=== PATIENT | female | born 1965 | race Caucasian/White ===

== ENCOUNTER 2017-04-03 10:35 | Emergency (ER) | payer BC ==
[2017-04-03] MEDS: KETOROLAC 60 MG/2 ML VIAL (J1885) IM (12:11)
== END 2017-04-03 12:59 | disposition home or self-care (01) ==
LOC: M ED 10:35
DX: R51 Headache (principal); R11.0 Nausea
CPT/HCPCS: J1885

== ENCOUNTER → 2017-05-07 | Outpatient (CLI) | payer BC | LOC: M WUC 16:08 | DX: M79.674 Pain in right toe(s) (principal) | CPT/HCPCS: 73660 ==

== ENCOUNTER → 2017-11-02 | Outpatient (CLI) | payer BC | LOC: M WHC 14:53 | DX: Z12.31 Encounter for screening mammogram for malignant neoplasm of breast (principal); N60.31 Fibrosclerosis of right breast; N60.32 Fibrosclerosis of left breast | CPT/HCPCS: 77067 ==

== ENCOUNTER → 2017-11-29 | Outpatient (CLI) | payer BC ==
[2017-11-29 10:29] LABS: HEMATOCRIT 39.8 % (36.0-47.0); HEMOGLOBIN 13.2 g/dl (12.0-15.5); MEAN CORPUSCULAR HGB CONC 33.2 g/dl (32.0-36.5); MEAN CORPUSCULAR VOLUME 90.5 fl (80.0-96.0); PLATELET COUNT, AUTOMATED 235 10^3/uL (150-450); RED CELL DISTRIBUTION WIDTH 13.6 % (11.5-14.5); WHITE BLOOD COUNT 7.3 10^3/uL (4.0-10.0)
[2017-11-29 14:30] LABS: ALBUMIN 4.1 GM/DL (3.2-5.2); ALBUMIN/GLOBULIN RATIO 1.11 (1.00-1.93); ALKALINE PHOSPHATASE 82 U/L (45-117); ALT/SGPT 28 U/L (12-78); ANION GAP 9 MEQ/L (8-16); AST/SGOT 20 U/L (7-37); BILIRUBIN,TOTAL 0.5 MG/DL (0.2-1.0); BLOOD UREA NITROGEN 19 MG/DL (7-18); CALCIUM LEVEL 9.4 MG/DL (8.5-10.1); CARBON DIOXIDE LEVEL 28 MEQ/L (21-32); CHLORIDE LEVEL 105 MEQ/L (98-107); CHOLESTEROL LEVEL 219 MG/DL (<200); CHOLESTEROL RISK RATIO 2.638 (<5); CREATININE FOR GFR 0.77 MG/DL (0.55-1.30); GLOMERULAR FILTRATION RATE > 60.0 (>51); GLUCOSE, FASTING 79 MG/DL (70-100); HDL CHOLESTEROL 83 MG/DL (>40); LDL CHOLESTEROL 120 MG/DL (<100); NON-HDL-C 136 MG/DL; POTASSIUM SERUM 4.1 MEQ/L (3.5-5.1); SODIUM LEVEL 142 MEQ/L (136-145); TOTAL 25(OH) VITAMIN D 52.2 NG/ML (30.0-100.0); TOTAL PROTEIN 7.8 GM/DL (6.4-8.2); TRIGLYCERIDES LEVEL 80 MG/DL (<150)
[2017-11-29 15:32] LABS: ESTIMATED AVERAGE GLUCOSE 105 MG/DL (60-110); HEMOGLOBIN A1c 5.3 %
== END ==
LOC: M LAB 10:03
DX: R53.83 Other fatigue (principal); E03.9 Hypothyroidism, unspecified
CPT/HCPCS: 71046

== ENCOUNTER → 2018-12-19 | Outpatient (CLI) | payer OTHER ==
[~2018-12-19] MED LIST: CEFD1CAP8 PO; CYCL10TA PO; HYDR-3716 PO; OXYB5TAB10 PO; SOMA350T PO; XANA1TAB2 PO; ZOFR4TAB14 PO
--- NOTE | 2018-12-19 16:23 | REPMRS ---
Patient History The patient states she has not had a clinical breast exam in over a year. Patient is postmenopausal. Family history of colorectal cancer at age 73 in mother. 3D TOMOSYNTHESIS WAS PERFORMED. The [facility] lifetime risk for breast cancer is 7.7%. Digital Woman Screen Mammo: December 19, 2018 - Exam #: [id number] Bilateral CC and MLO view(s) were taken. Technologist: Flaquita Scott Technologist Prior study comparison: November 02, 2017, bilateral digital woman screen mammo performed at [facility]. June 23, 2015, digital woman screen mammo performed at [facility]. FINDINGS: The breast tissue is heterogeneously dense. This may lower the sensitivity of mammography. There has been no change in the appearance of the mammogram from the prior studies. There is a moderate amount of residual fibroglandular tissue which is fairly symmetric. There is no interval development of dominant mass, areas of architectural distortion, or clustered microcalcification typical of malignancy. Assessment: BI-RADS/ACR category 1 mammogram. Negative Mammogram. Recommendation Routine screening mammogram in 1 year (for women over age 40). This mammogram was interpreted with the aid of an FDA-approved computer-aided dectection system. Electronically Signed By: Alexandr Jose MD 12/19/18 7101
== END ==
LOC: M WHC 15:00
PROVIDERS: ATTEND Family Medicine
DX: Z12.31 Encounter for screening mammogram for malignant neoplasm of breast (principal); Z78.0 Asymptomatic menopausal state; Z80.0 Family history of malignant neoplasm of digestive organs

== ENCOUNTER → 2019-02-18 | Outpatient (REF) | payer OTHER | LOC: M PLALAB 15:27 | PROVIDERS: ATTEND Nurse Practitioner Women's Health | DX: Z12.4 Encounter for screening for malignant neoplasm of cervix (principal) ==

== ENCOUNTER → 2019-04-22 | Outpatient (CLI) | payer OTHER ==
[2019-04-22 13:33] LABS: HEMATOCRIT 43.4 % (36.0-47.0); HEMOGLOBIN 14.5 g/dl (12.0-15.5); MEAN CORPUSCULAR HEMOGLOBIN 31.9 pg (27.0-33.0); MEAN CORPUSCULAR HGB CONC 33.4 g/dl (32.0-36.5); MEAN CORPUSCULAR VOLUME 95.6 fl (80.0-96.0); PLATELET COUNT, AUTOMATED 241 10^3/uL (150-450); RED BLOOD COUNT 4.54 10^6/uL (4.00-5.40); WHITE BLOOD COUNT 6.2 10^3/uL (4.0-10.0)
[2019-04-22 13:35] LABS: BLOOD UREA NITROGEN 15 MG/DL (7-18); CALCIUM LEVEL 9.7 MG/DL (8.5-10.1); CARBON DIOXIDE LEVEL 31 MEQ/L (21-32); CHLORIDE LEVEL 102 MEQ/L (98-107); CREATININE FOR GFR 0.88 MG/DL (0.55-1.30); GLOMERULAR FILTRATION RATE > 60.0 (>51); GLUCOSE, FASTING 94 MG/DL (70-100); POTASSIUM SERUM 4.1 MEQ/L (3.5-5.1); SODIUM LEVEL 139 MEQ/L (136-145)
== END ==
LOC: M PLALAB 08:59
PROVIDERS: ATTEND Urology
DX: R32 Unspecified urinary incontinence (principal)

== ENCOUNTER 2019-04-29 07:53 | Day surgery (SDC) | payer OTHER ==
[~2019-04-29] VITALS: Ht 162.6 cm; Wt 61.6 kg
[~2019-04-29 07:53] MED LIST changes: +LR 1,000 ML IV ONE; +MELO7.5T35 PO; +ceFAZolin SOD 2 GM in IV 1 EA IV ONE
[2019-04-29] MEDS ORDERED: LIDOCAINE 2% INJ 100 MG/5 ML SDV (FOR ANES.) As Ordered ONE (08:09)
[2019-04-29] MEDS ORDERED: fentaNYL 100 MCG/2 ML INJECTION (J3010) As Ordered ONE ×2 (08:09→11:54)
[2019-04-29] MEDS ORDERED: propofoL 200 MG/20 ML VIAL As Ordered ONE (08:09)
[2019-04-29] MEDS ORDERED: MIDAZOLAM INJ 2 MG/2 ML VIAL (J2250) As Ordered ONE (08:09)
[2019-04-29] MEDS ORDERED: ESTROGENS VAGINAL CREAM 30GM As Ordered ONE (10:31)
[2019-04-29] MEDS ORDERED: BUPIVACAINE/EPIN 0.25% 30 ML VIAL As Ordered ONE (10:31)
[2019-04-29] MEDS ORDERED: LIDOCAINE 1% SDV INJ 30 ML VIAL As Ordered ONE (10:31)
[2019-04-29] MEDS ORDERED: LIDOCAINE 2% 5ML JELLY UROJET As Ordered ONE (10:31)
[2019-04-29] MEDS ORDERED: BACITRACIN PWD 50,000 UNITS VIAL As Ordered ONE (10:32)
[2019-04-29] MEDS ORDERED: FLUORESCEIN 10% (100MG/ML) 5 ML VIAL As Ordered ONE (10:32)
[2019-04-29] MEDS ORDERED: dexameTHASONE 4 MG/ML 1ML VIAL (J1100) As Ordered ONE (10:54)
[2019-04-29] MEDS ORDERED: KETOROLAC 60 MG/2 ML VIAL (J1885) As Ordered ONE (11:10)
[2019-04-29] MEDS ORDERED: ONDANSETRON 4MG/2ML VIAL (J2405) As Ordered ONE (11:10)
[2019-04-29] MEDS ORDERED: ACETAMINOPHEN 1000MG 100ML IV BTL (OFIRMEV) (J0131 PER 10MG) As Ordered ONE (11:10)
[2019-04-29] MEDS ORDERED: METOCLOPRAMIDE INJ 10MG/2ML VIAL (J2765) As Ordered ONE (11:10)
[2019-04-29] MEDS ORDERED: BACITRACIN OINT 30GM As Ordered ONE (11:27)
[2019-04-29] MEDS: fentaNYL 100 MCG/2 ML INJECTION (J3010) IV PRN ×3 (11:55→12:14)
[2019-04-29] MEDS ORDERED: LR 1,000 ML IV SCH (12:00)
[2019-04-29] MEDS ORDERED: ONDANSETRON 4MG/2ML VIAL (J2405) IV PRN (12:00)
[2019-04-29] MEDS ORDERED: ALPRAZolam 0.5 MG TAB PO PRN (13:15)
--- NOTE | 2019-04-29 13:15 | ECGEPIP ---
[facility] Test Date: 2019-04-29 Pat Name: NICK VERNON Department: Room: - Gender: Female Adjuster Electrical Contacts: JULI : 1965 Requested By: Ruddy Smith Order Number: [id number] Reading MD: Roberto Wagner Measurements Intervals [place] Rate: 65 P: 65 AL: 162 QRS: 45 QRSD: 85 T: 32 QT: 406 QTc: 423 Interpretive Statements SINUS RHYTHM Within normal limits. Electronically Signed on 04-29-2019 13:15:32 EST by Roberto Wagner
[2019-04-29] MEDS ORDERED: PERC5TAB12 PO (13:18)
[2019-04-29] MEDS ORDERED: PERCOCET 5MG/325MG TAB As Ordered ONE ×2 (14:10→14:50)
[2019-04-29] MEDS: PERCOCET 5MG/325MG TAB PO PRN ×3 (14:20→19:10)
[2019-04-29] MEDS ORDERED: PERCOCET 5MG/325MG TAB PO PRN (15:15)
[2019-04-29 17:00] VITALS: BP_SYST 102; BP_SYST 142; BP_DIAS 57; BP_DIAS 85
[2019-04-29 17:30] VITALS: BP 134/75
[2019-04-29] MEDS ORDERED: ONDANSETRON 4 MG ORAL DISINTEGRATING TAB (Q0162 PER 1MG) PO PRN (18:15)
[2019-04-29 20:00] VITALS: BP 128/72
--- NOTE | 2019-04-29 21:44 | RO ---
DATE OF PROCEDURE: 04/29/2019 PREOPERATIVE DIAGNOSIS: Mixed urinary incontinence. POSTOPERATIVE DIAGNOSIS: Mixed urinary incontinence. PROCEDURE: Placement of a midurethral sling with the use of a TVT-O by [employer]. SURGEON: Dr. Karin Treadwell OFFICE PROFESSIONAL: ANESTHESIA: General. MEDICATIONS: Ancef 2 grams preoperatively. DRAINS: #16-Somali Linares catheter. ESTIMATED BLOOD LOSS: 50 mL. INDICATIONS FOR PROCEDURE: The patient is a 53-year-old female with severe mixed urinary incontinence. She had tried oxybutynin and went up to 10 mg ER and had an adequate trial on this but noticed no change in her symptoms. She definitely leaks significant urine with stress maneuvers. Urodynamic studies were done 02/28/2019, and this showed that she voided 101 mL with a PVR of 27 mL. Her first sensation was at 111 mL, normal desire 125 mL, and urgency at 121 mL, and this was her total capacity. She did have a leak point pressure at 109 mL with stress maneuvers, but unfortunately I could not see the abdominal leak point pressure since these were all negative numbers. Kiara does void very frequently, at least once an hour but says this is more to prevent leakage. We discussed all different options, alternatives, risks, and benefits. She clearly understood that even if we fixed the stress component that she could continue to have urgency, frequency, and urge incontinence in the future requiring either medical management or other management options. At this point, though, the stress component is so bothersome to her that she wanted to have this fixed first. DESCRIPTION OF PROCEDURE: The patient was brought into the operating room and sequential compression devices were in place and preoperative antibiotics had been given. Anesthesia was induced. She was then placed in the lithotomy position and careful attention was paid that her pressure points were well padded and protected. Next, she was prepped and prepped in the usual fashion. A #16-Somali Linares catheter was placed and a Mcclure retractor was utilized. A 1 cm incision was made 1 cm from the urethral meatus after 0.25% Marcaine was injected. 0.25% Marcaine was also injected in the bilateral thigh creases near where the TVT-O comes out. An incision was then made 1 cm from the urethral meatus, approximately 1 cm in length. This area was then dissected using Metzenbaum scissors up towards the obturator membrane. First, on the right hand side, the TVT passer was placed and then the TVT-O was placed over this out through the obturator membrane and out through skin. This was then done on the left-hand side. A #12-Somali Hegar dilator was placed between the urethra and the sling material for adequate tensioning, and the plastic covering was removed and the sling was cut to the level of skin. Copious antibiotic irrigation was utilized and vaginal mucosa was closed using an interrupted #2-0 chromic suture. Cystoscopy: At this point, cystoscopy was done. The urethra was open without any evidence of lesions or strictures. Upon entering the bladder, there was excellent efflux of fluorescein seen from both ureteral orifices. There was no evidence of stones, erythematous patches, lesions or foreign bodies within the bladder. The Linares catheter was replaced and vaginal packing was placed. These will be left in place for 1 hour in the recovery room. The patient tolerated the procedure well and was returned to the recovery room in stable condition.
[2019-04-30] VITALS: BP 109/61
[2019-04-30] MEDS: PERCOCET 5MG/325MG TAB PO PRN (01:54)
[2019-04-30 04:00] VITALS: BP 120/74
[2019-04-30 08:00] VITALS: BP 125/76
[2019-04-30] MEDS ORDERED: ACETAMINOPHEN 500 MG TAB PO ONE (08:00)
[2019-04-30] MEDS ORDERED: HYDR-3713 PO (08:15)
[2019-04-30] MEDS ORDERED: ONDA4TAB6 PO (08:15)
== END 2019-04-30 11:00 | disposition home or self-care (01) ==
LOC: M SDC 07:53 → M PED 17:22 → M SDC 04-30 11:00
PROVIDERS: ATTEND Specialist
DX: N39.46 Mixed incontinence (principal); F32.9 Major depressive disorder, single episode, unspecified; F41.9 Anxiety disorder, unspecified; Z79.899 Other long term (current) drug therapy
CPT/HCPCS: 57288; 93005; C1771; J0131; J0690; J1100; J1885; J2250; J2405; J2765; J3010; Q0162

== ENCOUNTER 2019-05-20 19:33 | Emergency (ER) | payer MEDICAID, OTHER ==
[~2019-05-20] VITALS: Ht 162.6 cm; Wt 59.1 kg
[~2019-05-20 19:33] MED LIST changes: +HYDR-3713 PO; -LR 1,000 ML IV ONE; +ONDA4TAB6 PO; +PERC5TAB12 PO; -ceFAZolin SOD 2 GM in IV 1 EA IV ONE
[2019-05-20] MEDS ORDERED: ONDANSETRON 4MG/2ML VIAL (J2405) IV ONE (20:45)
[2019-05-20] MEDS ORDERED: MORPHINE 4 MG/ML 1ML VIAL/SYRINGE (J2270) IV ONE (20:45)
[2019-05-20 20:59] LABS: BASO # 0.1 10^3/uL (0.0-0.2); BASO % 0.7 % (0.0-1.0); EOS # 0.2 10^3/uL (0.0-0.5); EOS % 2.8 % (0.0-3.0); HEMATOCRIT 38.9 % (36.0-47.0); HEMOGLOBIN 13.2 g/dl (12.0-15.5); LYMPH # 2.4 10^3/uL (1.5-5.0); LYMPH % 33.2 % (24.0-44.0); MEAN CORPUSCULAR HEMOGLOBIN 30.6 pg (27.0-33.0); MEAN CORPUSCULAR HGB CONC 33.9 g/dl (32.0-36.5); MEAN CORPUSCULAR VOLUME 90.3 fl (80.0-96.0); MONO # 0.6 10^3/uL (0.0-0.8); MONO % 8.7 % (0.0-5.0); NEUTROPHILS % 54.5 % (36.0-66.0); PLATELET COUNT, AUTOMATED 272 10^3/uL (150-450); RED BLOOD COUNT 4.31 10^6/uL (4.00-5.40); WHITE BLOOD COUNT 7.3 10^3/uL (4.0-10.0)
[2019-05-20 21:34] LABS: ALBUMIN 4.3 GM/DL (3.2-5.2); ALT/SGPT 24 U/L (12-78); BILIRUBIN,DIRECT 0.1 MG/DL (0.0-0.2); BILIRUBIN,TOTAL 0.4 MG/DL (0.2-1.0); BLOOD UREA NITROGEN 18 MG/DL (7-18); CALCIUM LEVEL 9.6 MG/DL (8.5-10.1); CARBON DIOXIDE LEVEL 30 MEQ/L (21-32); CHLORIDE LEVEL 104 MEQ/L (98-107); CK-MB VALUE MASS 1.1 NG/ML (<3.6); CPK CREATINE PHOSPHOKINASE 109 U/L (26-192); CREATININE FOR GFR 0.94 MG/DL (0.55-1.30); GLOMERULAR FILTRATION RATE > 60.0 (>51); GLUCOSE, FASTING 89 MG/DL (70-100); LIPASE 197 U/L (73-393); MB/CK RELATIVE INDEX 1.01 (< OR =4); POTASSIUM SERUM 3.8 MEQ/L (3.5-5.1); SODIUM LEVEL 142 MEQ/L (136-145); TOTAL PROTEIN 7.7 GM/DL (6.4-8.2); TROPONIN I < 0.02 NG/ML (< 0.10)
[2019-05-20 21:39] LABS: AMORPHOUS SEDIMENT SMALL (NEGATIVE); APPEARANCE, URINE CLOUDY (CLEAR); BACTERIA, URINE AUTO NEGATIVE (NEGATIVE); BILIRUBIN, URINE AUTO NEGATIVE (NEGATIVE); BLOOD, URINE BLOOD NEGATIVE (NEGATIVE); COLOR, URINE YELLOW (YELLOW); GLUCOSE, URINE (UA) AUTO NEGATIVE (NEGATIVE); KETONE, URINE AUTO NEGATIVE (NEGATIVE); LEUKOCYTE ESTERASE, URINE AUTO 1+ (NEGATIVE); MUCUS, URINE SMALL (NEGATIVE); NITRITE, URINE AUTO NEGATIVE (NEGATIVE); PROTEIN, URINE AUTO NEGATIVE (NEGATIVE); RBC, URINE AUTO 1 /HPF (0-3); SPECIFIC GRAVITY URINE AUTO 1.016 (1.002-1.035); SQUAMOUS EPITHELIAL CELL UR AU 1 /HPF (0-6); UROBILINOGEN, URINE AUTO 0.2 mg/dL (0.0-2.0); WBC, URINE AUTO 6 /HPF (0-3)
[2019-05-20] MEDS ORDERED: ISOVUE-370 76% 100ML VIAL (Q9967) As Ordered ONE (21:59)
[2019-05-21] MEDS ORDERED: KETOROLAC 30 MG/ML VIAL (J1885) IV ONE
[2019-05-21] MEDS ORDERED: DICYCLOMINE 10 MG CAP PO ONE (00:15)
[2019-05-21 00:43] VITALS: BP 156/72
--- NOTE | 2019-05-21 07:54 | REP ---
PA and lateral chest: Comparison is 11/29/2017. The lung yo are clear. The cardiac size is normal. The taya, mediastinum, and skeletal structures are unremarkable. Impression: Negative PA and lateral chest. There is no interval change. Electronically Signed by Alexandr Camara MD 05/21/2019 07:46 A
--- NOTE | 2019-05-21 08:23 | REP ---
CT of the chest with IV contrast. The patient should is of elevated D-dimer, CT pulmonary artery angiography: There are no emboli in the pulmonary trunk or central pulmonary arteries. There are no emboli in the pulmonary lobe or segment branches. There are no infiltrates. There are no pleural effusions. X There is a 5 mm noncalcified lung nodule in the medial segment of the right middle lobe on image 49. There is a 3 mm pleural-based lung nodule in the lateral basilar segment of the right lower lobe on image 73. There is no mediastinal, hilar or axillary lymph node enlargement. The thoracic aorta is unremarkable. Cardiac size is normal. There is no pericardial effusion. Impression: There are no pulmonary emboli. There are two small lung nodules as described. Depending on risk factors consider follow-up CT for further evaluation of these nodules in 12 months. There are no infiltrates, pleural effusions, or adenopathy. Stat interpretation is given upon completion of the study after-hours by [facility]. Electronically Signed by Alexandr Camara MD 05/21/2019 08:15 A
--- NOTE | 2019-05-21 08:40 | REP ---
CT of the abdomen pelvis with IV contrast, without bowel contrast: The studies performed contiguously with the chest CT this same date for abdominal pain: There are no comparison studies. The visualized lung yo are unremarkable. The hepatic parenchyma, gallbladder, pancreas and spleen are normal size and unremarkable. The adrenals, kidneys and abdominal aorta are unremarkable. There is no periaortic adenopathy or mass. 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 This may be congenital or may be from extrinsic compression by the diaphragmatic mayra. There is no stenosis of the celiac artery on the right or left renal arteries or the inferior mesenteric artery. There is no bowel distension or obstruction. The bowel and mesentery are otherwise unremarkable. A followup 90 ounces of 857 fascia. Pelvis: The bladder, uterus and adnexa are unremarkable. There is no adenopathy or ascites. The pelvic bowel loops are unremarkable. 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 Emergency interpretation is given upon the study after-hours by [facility]. Electronically Signed by Alexandr Camara MD 05/21/2019 08:32 A
--- NOTE | 2019-05-21 11:45 | ED PDOC ---
Post-Departure Follow-Up dr cohen faxed formal report of ct abd/p for fu Harper Parr MD May 21, 2019 11:45
--- NOTE | 2019-05-21 11:46 | ED PDOC ---
Post-Departure Follow-Up cta chest faxed for Harper Lincoln dr, MD May 21, 2019 11:46
--- NOTE | 2019-05-21 20:52 | ECGEPIP ---
[facility] - ED Test Date: 2019-05-20 Pat Name: NICK VERNON Department: Room: - Gender: Female Collection Officer: sb : 1965 Requested By: KP Avalos PA-C Order Number: [id number] Reading MD: Maru Conrad Measurements Intervals [place] Rate: 58 P: 76 [place]: 161 QRS: 66 QRSD: 93 T: 56 QT: 396 QTc: 391 Interpretive Statements SINUS BRADYCARDIA SIMILAR 04/29/19 Electronically Signed on 05-21-2019 20:52:22 EDT by Maru Conrad
== END 2019-05-21 01:12 | disposition home or self-care (01) ==
LOC: M ED 19:33
DX: R10.9 Unspecified abdominal pain (principal); R06.02 Shortness of breath; Z98.890 Other specified postprocedural states; R11.0 Nausea; R00.1 Bradycardia, unspecified; R91.1 Solitary pulmonary nodule
CPT/HCPCS: 71046; 71275; 74177; 80048; 80076; 81001; 82550; 82553; 83690; 85025; 85379; 87086; 93005; 96374; 96375; 99284; J1885; J2270; J2405; Q9967

== ENCOUNTER → 2019-12-25 | Outpatient (CLI) | payer OTHER ==
[~2019-12-25] MED LIST changes: +CYCL-707 PO; -CYCL10TA PO
--- NOTE | 2019-12-25 16:38 | REPMRS ---
Patient History Family history of colorectal cancer at age 73 in mother. Digital Woman Screen Mammo: December 25, 2019 - Exam #: [id number] Bilateral CC and MLO view(s) were taken. Technologist: Denisa Paez, Technologist Prior study comparison: December 19, 2018, bilateral digital woman screen mammo performed at [facility]. November 02, 2017, bilateral digital woman screen mammo performed at [facility]. June 23, 2015, digital woman screen mammo performed at [facility]. FINDINGS: There are scattered fibroglandular densities. The Volpara volumetric breast density category is:B. There has been no change in the appearance of the mammogram from the prior studies. There is a mild amount of scattered fibroglandular density which is fairly symmetric. There is no interval development of dominant mass, architectural distortion, or grouped microcalcification suggestive of malignancy. 3-D tomosynthesis shows no additional findings. Assessment: BI-RADS/ACR category 1 mammogram. Negative Mammogram. Recommendation Routine screening mammogram of both breasts in 1 year (for women over age 40). This patient's Lifetime Breast Cancer Risk is estimated at 7.6 %. This mammogram was interpreted with the aid of an FDA-approved computer-aided dectection system. Electronically Signed By: Viktor Sweet MD 12/25/19 9710
== END ==
LOC: M WHC 12:33
PROVIDERS: ATTEND Family Medicine
DX: Z12.31 Encounter for screening mammogram for malignant neoplasm of breast (principal)

== ENCOUNTER → 2020-08-24 | Outpatient (REF) | payer OTHER ==
[2020-08-24 14:12] LABS: BACTERIA, URINE AUTO NEGATIVE (NEGATIVE); MUCUS, URINE SMALL (NEGATIVE); RBC, URINE AUTO 0 /HPF (0-3); SQUAMOUS EPITHELIAL CELL UR AU 2 /HPF (0-6); WBC, URINE AUTO 1 /HPF (0-3)
== END ==
LOC: M SMT 13:00
PROVIDERS: ATTEND Specialist
DX: R32 Unspecified urinary incontinence (principal)

== ENCOUNTER → 2020-11-03 | Outpatient (CLI) | payer OTHER ==
--- NOTE | 2020-11-03 10:00 | REP ---
INDICATION: R KNEE PAIN COMPARISON: None. TECHNIQUE: AP, lateral, bilateral oblique and sunrise views. FINDINGS: The osseous structures and joint spaces are intact and normal. There is no evidence for acute fracture or dislocation. No joint effusion is appreciated. Surrounding soft tissues are unremarkable. No subcutaneous emphysema or radiodense foreign body. No significant degenerative changes. IMPRESSION: Normal age-appropriate examination. <Electronically signed by Rebel Hood > 11/03/20 0954
== END ==
LOC: M RAD 09:20
PROVIDERS: ATTEND Family Medicine
DX: M25.561 Pain in right knee (principal)

== ENCOUNTER → 2020-12-29 | Outpatient (CLI) | payer OTHER | LOC: M LABSMTC 09:51 | PROVIDERS: ATTEND Anesthesiology | DX: Z01.812 Encounter for preprocedural laboratory examination (principal); Z20.822 Contact with and (suspected) exposure to COVID-19 ==

== ENCOUNTER 2021-01-03 08:33 | Day surgery (SDC) | payer OTHER ==
[~2021-01-03] VITALS: Ht 162.6 cm; Wt 63.0 kg
[~2021-01-03 08:33] MED LIST changes: +LIDOCAINE 2% 100MG/5ML SDV (FOR ANES.) As Ordered ONE; +propofoL 200 MG/20 ML VIAL As Ordered ONE
--- OUTSIDE RECORDS SUMMARY | 2021-01-03 08:38 | CCD | Continuity of Care Document ---
Author Author Kiara DE LEÓN Organization Unknown Address [address] [place] [address] Phone [phone] Care Team Providers Care Commercial Green Retrofit Architect Name Role Phone Kala Sebastian MD [facility] [phone] Problems Description No Information Available Social History Type Date Description Comments Sex Unknown ETOH Use Occasionally consumes alcohol Tobacco Use Start: Unknown Patient has never smoked Allergies, Adverse Reactions, Alerts Description No Known Drug Allergies Medications Active Medications SIG Qnty Indications Ordering Provide r Date Alprazolam 1mg Tablets take 1 tablet qhs Unknown Ibuprofen 800mg Tablets take one tablet every 6-8hrs with food/prn Unknown Immunizations CPT Code Status Date Vaccine Reaction Lot # [id number] Given 12/09/2020 PPD- TB Intradermal Test 0mm ,negative read by SYDNEY Millard 12-11-20 [id number] Given 01/07/2019 PPD- TB Intradermal Test 0mm ,negative read on 01-09-19 by SYDNEY Méndez [id number] Given 10/10/2016 PPD- TB Intradermal Test No reaction - read as negative, 0 mm of induration, by SYDNEY Clark on 10/12/16 [id number] [id number] Vital Signs Date Vital Result Comment 12/15/2020 10:31am BP Systolic 138 mmHg BP Diastolic 88 mmHg Heart Rate 67 /min Respiratory Rate 16 /min O2 % BldC Oximetry 97 % Body Temperature 97.9 F Weight 140.00 lb Height 64 inches 5'4" BMI (Body Mass Index) 24.0 kg/m2 Pain Level 0 01/07/2019 8:19am BP Systolic 137 mmHg BP Diastolic 86 mmHg Heart Rate 65 /min Respiratory Rate 16 /min O2 % BldC Oximetry 97 % Body Temperature 97.9 F Weight 136.00 lb Height 64 inches 5'4" BMI (Body Mass Index) 23.3 kg/m2 Pain Level 0 Results Description No Information Available Procedures Date Code Description Status 12/15/2020 88663 Preventive Visit Est 40-64 Yrs C ompleted Medical Devices Description No Information Available Encounters Type Date Location Provider Dx Diagnosis Office Visit 12/15/2020 9:00a Main Office SYDNEY Krause JR Z 02.1 Encounter for pre-employment examination Assessments Date Code Description Provider 12/15/2020 Z02.1 Encounter for pre-employment exa mination SYDNEY Krause JR 12/09/2020 Z11.1 Encounter for screening for resp iratory tuberculosis Ronit Correa Plan of Treatment No Information Available Functional Status Description No Information Available Mental Status Description No Information Available Referrals Description No Information Available
--- OUTSIDE RECORDS SUMMARY | 2021-01-03 08:38 | CCD | Continuity of Care Document ---
Author Author Kiara COOPER Organization Unknown Address [address] [place] [address] Phone [phone] Care Team Providers Care Hotel Manager Name Role Phone Kala Sebastian MD [facility] [phone] Problems Description No Information Available Social History Type Date Description Comments Sex Unknown ETOH Use Occasionally consumes alcohol Tobacco Use Start: Unknown Patient has never smoked Allergies, Adverse Reactions, Alerts Description No Known Drug Allergies Medications Active Medications SIG Qnty Indications Ordering Provide r Date Oxybutynin Chloride ER 5mg Tablets ER 24HR Unknown Alprazolam 1mg Tablets take 1 tablet by mouth three times a day Unknown Immunizations CPT Code Status Date Vaccine Reaction Lot # [id number] Given 12/09/2020 PPD- TB Intradermal Test [id number] 03014 Given 01/07/2019 PPD- TB Intradermal Test 0mm ,negative read on 01-09-19 by SYDNEY Méndez [id number] Given 10/10/2016 PPD- TB Intradermal Test No reaction - read as negative, 0 mm of induration, by SYDNEY Clark on 10/12/16 1018 [id number] Vital Signs Date Vital Result Comment 01/07/2019 8:19am BP Systolic 137 mmHg BP Diastolic 86 mmHg Heart Rate 65 /min Respiratory Rate 16 /min O2 % BldC Oximetry 97 % Body Temperature 97.9 F Weight 136.00 lb Height 64 inches 5'4" BMI (Body Mass Index) 23.3 kg/m2 Pain Level 0 05/07/2017 3:17pm BP Systolic 168 mmHg BP Diastolic 98 mmHg Heart Rate 73 /min Respiratory Rate 18 /min O2 % BldC Oximetry 98 % Body Temperature 97.5 F Weight 128.00 lb Height 64 inches 5'4" BMI (Body Mass Index) 22.0 kg/m2 Pain Level 8 Results Description No Information Available Procedures Description No Information Available Medical Devices Description No Information Available Encounters Description No Information Available Assessments Date Code Description Provider 12/09/2020 Z11.1 Encounter for screening for resp iratory tuberculosis Ronit Correa Plan of Treatment No Information Available Functional Status Description No Information Available Mental Status Description No Information Available Referrals Description No Information Available
--- OUTSIDE RECORDS SUMMARY | 2021-01-03 08:38 | CCD ---
Author Author [facility] Organization [facility] Address Unknown Phone Unavailable Care Team Providers Care Animal Husbandman Name Role Phone EbenShelbieh Unavailable PROBLEMS Type Condition ICD9-CM Code [id number] Code Onset Dates Condition S tatus W/U Status Risk SNOMED Code Notes Problem Unspecified urinary incontinence R32 Active conf irmed [id number] Problem Urinary incontinence R32 Active confirmed [id number] ALLERGIES No Known Allergies ENCOUNTERS from 1965 to 2020-11-02 Encounter Location Date Provider Diagnosis [facility] [phone] [place] [address] Aug, Karin Treadwell Urinary incontinence R32 ; Abdominal blo ating R14.0 and Generalized abdominal pain R10.84 IMMUNIZATIONS No Information SOCIAL HISTORY Tobacco Use: Social History Observation Description Date Details (start date - stop date) Never Smoker Sex Assigned At : Social History Observation Description Sex Assigned At Unknown Language: Question Answer Notes Languages spoken: Romanian Samaritan: Question Answer Notes Samaritan No voodoo beliefs that would impact health care. Sexual Hx: Question Answer Notes Had sex in the last 12 months (vaginal, oral, or anal)? Yes LMP: age 51 1/2 Have you ever had an STD? No with Men only Use protection? No Alcohol Screening: Question Answer Notes Did you have a drink containing alcohol in the past year? Ye s Points 1 Interpretation Negative How many drinks did you have on a typica l day when you were drinking in the past year? 1 or 2 (0 points) How often did you have a drink containing alcohol in t he past year? Monthly or less (1 point) Tobacco Use: Question Answer Notes Are you a: never smoker REASON FOR REFERRAL No Information VITAL SIGNS Weight 149.4 lbs Aug, Height 63" in Aug, BMI 26.46 kg/m2 Aug, Heart Rate 76 /min Aug, Respiratory Rate 18 /min Aug, Temperature 96.9 degrees Fahrenheit Aug, Oximetry 97 Aug, Blood pressure systolic 126 mm Hg Aug, Blood pressure diastolic 72 mm Hg Aug, MEDICATIONS Medication SIG (Take, Route, Frequency, Duration) Notes Start Da te End Date Status Oxybutynin Chloride ER 10 MG 1 tablet Orally Once a day for 30 d ay(s) Feb, Not-Taking Ibuprofen 600 MG 1 tablet with food or milk a s needed Orally Three times a day for 21 day(s) Apr, Active ALPRAZolam 2 MG (Schedule IV Drug) TAKE ONE TABLET BY MOUTH THREE TIMES A DAY MAXIMUM DAILY DOSE THREE TABLETS Oral for 30 Not-Taking Percocet 5-325 MG 1 tablet as needed Orally every 6 hrs, MDD 4 f or 3 days Apr, Not-Taking Xanax 1 MG 1 tablet Orally twice daily Active Carisoprodol 350 MG (Schedule IV Drug) TAKE ONE TABLET BY MOUTH THREE TIMES A DAY MAXIMUM DAILY DOSE 3 Oral for 30 Not-Taking Zofran 4 MG 1 tablet Orally every 6 hours as needed for naus ea for 10 days Apr, Not-Taking Cyclobenzaprine HCl 10 MG TAKE ONE TABLET BY MOUTH THR EE TIMES A DAY Oral for 30 Not-Taking Meloxicam 7.5 MG TAKE ONE TABLET BY MOUTH TWICE A DAY Oral for 30 Not-Taking Bactrim DS 800-160 MG 1 tablet Orally as directed- 1 hour prior to cystoscopy Mar, Not-Taking PROCEDURES from 1965 to 2020-11-02 Procedure Date Ordered Result Body Site uro PVR (Post Voiding Residual) Bladder Scan 2020-08-24 N/A RESULTS Component Value Reference Range URINE CULTURE Reviewed date:08/25/2020 08:49:20 Interpretation: Performing Lab:[facility] [place], [facility] [address] [id number] , ,[place] [address] Microscopic Only Urine (Auto) Reviewed date:09/07/2020 16:03:26 Interpretation: Performing Lab:[facility] [place], [facility] [address] [address] , ,[place] [address] WBC, URINE AUTO 1 0-3 RBC, URINE AUTO 0 0-3 BACTERIA, URINE AUTO NEGATIVE NEGATIVE SQUAMOUS EPITHELIAL CELL UR AU 2 0-6 MUCUS, URINE SMALL NEGATIVE HYALINE CAST, URINE AUTO 0 0-1 REASON FOR VISIT feels like sling slipped MEDICAL (GENERAL) HISTORY Type Description Date Medical History urge incontinence Medical History anxiety Medical History herniated disc Surgical History appendectomy age 19 Surgical History cystoscopy 04/03/19 Surgical History bladder sling 04/2018 Hospitalization History No Hospitalization history informati on Goals Section No Information Health Concerns No Information MEDICAL EQUIPMENT No Information MENTAL STATUS No Information FUNCTIONAL STATUS No Information ASSESSMENTS Encounter Date Diagnosis Assessment Notes Treatment Notes Treatm ent Clinical Notes Aug, Urinary incontinence (ICD-10 - R32) Plan: -Patient is doing very well from a urologic standpoint but we will check her urine for microscopic urinalysis and culture and sensitivity today -It sounds like the patient would benefit from a GI consultation since her mother did of colon cancer and she's had quite a lot of bloating and complaints -Concern for shortness of breath should also be discussed further with her primary care doctor for different treatment options or further diagnoses The review of systems was reviewed and scanned. At least 40 minutes was spent today with greater than 50% of this in pvnp-iv-klim consultation since the patient quite a lot of concerns and was afraid that this was occurring because of the mid urethral sling but this has actually nothing to do with anything the complaint she is having and seems to have done the job very well for what it was meant to do. Aug, Abdominal bloating (ICD-10 - R14.0) Aug, Generalized abdominal pain (ICD-10 - R10.84) PLAN OF TREATMENT Treatment Notes Assessment Notes Clinical Notes Urinary incontinence Plan:-Patient is do ing very well from a urologic standpoint but we will check her urine for microscopic urinalysis and culture and sensitivity today-It sounds like the patient would benefit from a GI co nsultation since her mother did of colon cancer and she's had quite a lot of bloating and complaints-Concern for shortness of breath should also be discussed further with her primary care doctor for different treatment options or further diagnosesThe review of systems was reviewed and scanned.At least 40 minutes was spent today with greater than 50% of this in [id number]-[id number] consultation since the patient quite a lot of concerns and was afraid that this was occurring because of the mid urethral sling but this has actually nothing to do with anything the complaint she is having and seems to have done the job very well for what it was meant to do. Insurance Providers Payer Name Payer Address Payer Phone Insured Name Patient Relati onship to Insured Coverage Start Date Coverage End Date FORMERLY [facility], [facility] [employer] [facility] [address] [facility] [phone] NICK VERNON self
--- OUTSIDE RECORDS SUMMARY | 2021-01-03 08:38 | CCD | Continuity of Care Document ---
Author Author Kiara COOPER Organization Unknown Address [address] [place] [address] Phone [phone] Care Team Providers Care Armor Senior Sergeant Name Role Phone Kala Sebastian MD [facility] [phone] Problems Description No Information Available Social History [...] Code Status Date Vaccine Reaction Lot # [id number] Given 12/09/2020 PPD- TB Intradermal Test [id number] [id number] Given 01/07/2019 PPD- TB Intradermal Test 0mm ,negative read on 01-09-19 by SYDNEY Méndez [id number] Given 10/10/2016 PPD- TB Intradermal Test No reaction - read as negative, 0 mm of induration, by SYDNEY Clark on 10/12/16 1018 [id number] Vital Signs Date Vital Result Comment 01/07/2019 [...] Available Encounters Description No Information Available Assessments Description No Information Available Plan of Treatment No Information Available Functional Status Description No Information Available Mental Status Description No Information Available Referrals Description No Information Available
--- OUTSIDE RECORDS SUMMARY | 2021-01-03 08:38 | CCD | Continuity of Care Document ---
Author Author Kiara AMATO M.D. Organization Unknown Address [address] [place] [address] Phone [phone] Care Team Providers Care Teacher Citizenship Name Role Phone Kala Sebastian M.D. AUTM [phone] Problems Active Problems Provider Date Screening for malignant neoplasm of colon Jatin martinez M.D. Onset: 11/04/2020 Social History Type Date Description Comments Sex Unknown ETOH Use Denies alcohol use Tobacco Use Start: Unknown Patient has never smoked Allergies, Adverse Reactions, Alerts Description No Known Drug Allergies Medications Active Medications SIG Qnty Indications Ordering Provide r Date Sutab [id number] Tablets as directed 1box Jatin Amato M.D. 11/04/2020 Alprazolam 1mg Tablets Take One Tablet By Mouth Twice A Day Maximum Daily Dose 2 Tablets Unknown Ibuprofen 800mg Tablets Take One Tablet By Mouth Three Times A Day Unknown Immunizations Description No Information Available Vital Signs Date Vital Result Comment 11/04/2020 2:31pm Height 64 inches 5'4" Weight 146.00 lb BP Systolic 128 mmHg BP Diastolic 80 mmHg Heart Rate 70 /min BMI (Body Mass Index) 25.1 kg/m2 Weight 66.226 kg Body Temperature 96.8 F Results Description No Information Available Procedures Description No Information Available Medical Devices Description No Information Available Encounters Description No Information Available Assessments Date Code Description Provider 11/04/2020 Z80.0 Family history of cancer of colo n Jatin Amato M.D. Plan of Treatment Future Appointment(s):* 01/03/2021 11:00 am - Jatin Amato M.D. at Main Office 11/04/2020 - Jatin Amato M.D.* Z80.0 Family history of cancer of colon* Comments:* 55 yo wf who presents for a screening colonoscopy due to a family h/o colon cancer-mother. No c/o abdominal pain, weight loss, change in bowel habits, or rectal bleeding Positive family h/o colon cancer. No h/o chest pain, or sob. Plan :1.Setup colonoscopy.2. Informed consent given. Functional Status Description No Information Available Mental Status Description No Information Available Referrals Refer to Reason for Referral Status Appt Date Jatin Amato M.D. Created [address] [place] [address] [phone]
--- OUTSIDE RECORDS SUMMARY | 2021-01-03 08:38 | CCD | Continuity of Care Document ---
Author Author Kiara DE LEÓN Organization Unknown Address [address] [place] [address] Phone [phone] Care Team Providers Care Attorney Law Clerk Name Role Phone Kala Sebastian MD [facility] [phone] Problems Description No Information Available Social History [...] Code Status Date Vaccine Reaction Lot # [id number] Given 12/09/2020 PPD- TB Intradermal Test 0mm ,negative read by SYDNEY Millard 12-11-20 [id number] Given 01/07/2019 PPD- TB Intradermal Test 0mm ,negative read on 01-09-19 by SYDNEY Méndez [id number] Given 10/10/2016 PPD- TB Intradermal Test No reaction - read as negative, 0 mm of induration, by SYDNEY Clark on 10/12/16 [id number] Vital Signs Date Vital Result Comment 12/15/2020 [...] Available Procedures Date Code Description Status 12/15/2020 79799 Preventive Visit Est 40-64 Yrs C ompleted [...]
--- OUTSIDE RECORDS SUMMARY | 2021-01-03 08:38 | CCD | Continuity of Care Document ---
Author Author Kiara AMATO M.D. Organization Unknown Address [address] [place] [address] Phone [phone] Care Team Providers Care Horticultural Farmer Name Role Phone Kala Sebastian M.D. AUTM [phone] Problems Active Problems Provider Date Screening for malignant neoplasm of colon Jatin martinez M.D. Onset: 11/04/2020 Social History Type Date Description Comments Sex Unknown ETOH Use Denies alcohol use Tobacco Use Start: Unknown Patient has never smoked Allergies, Adverse Reactions, Alerts Description No Known Drug Allergies Medications Active Medications SIG Qnty Indications Ordering Provide r Date Sutab [id number] Tablets as directed 1box Jatin Amato M.D. [...] F Results Description No Information Available Procedures Date Code Description Status 11/04/2020 69856 Office/Outpatient New Low MDM 30 -44 Minutes Completed Medical Devices Description No Information Available Encounters Type Date Location Provider Dx Diagnosis Office Visit 11/04/2020 2:15p Main Office Jatin Amato M.D. Z 80.0 Family history of malignant neoplasm of digestive organs Assessments Date Code Description Provider 11/04/2020 Z80.0 [...] Description No Information Available Referrals Refer to Dr Reason for Referral Status Appt Date Jatin Amato M.D. Created [address] [place] [address] [phone]
--- OUTSIDE RECORDS SUMMARY | 2021-01-03 08:38 | CCD | Continuity of Care Document ---
Author Author Kiara DE LEÓN Organization Unknown Address [address] [place] [address] Phone [phone] Care Team Providers Care Biblical Languages Professor Name Role Phone Kala Sebastian MD [facility] [phone] Problems Description No Information Available Social History [...] Code Status Date Vaccine Reaction Lot # [id number] Given 12/09/2020 PPD- TB Intradermal Test 0mm ,negative read by SYDNEY Millard 12-11-20 [id number] Given 01/07/2019 PPD- TB Intradermal Test 0mm ,negative read on 01-09-19 by SYDNEY Méndez [id number] Given 10/10/2016 PPD- TB Intradermal Test No reaction - read as negative, 0 mm of induration, by SYDNEY Clark on 10/12/16 [id number] Vital Signs Date Vital Result Comment 12/15/2020 [...] Available Procedures Date Code Description Status 12/15/2020 73927 Preventive Visit Est 40-64 Yrs C ompleted [...]
--- OUTSIDE RECORDS SUMMARY | 2021-01-03 08:38 | CCD ---
Author Author [facility] Organization [facility] Address Unknown Phone Unavailable Care Team Providers Care Hand Wood Sander Name Role Phone Caleb Amato MD Unavailable Unavailable Caleb Amato MD Unavailable Unavailable Caleb Amato MD Unavailable Unavailable Caleb Amato MD Unavailable Unavailable Caleb Amato MD Unavailable Unavailable Caleb Amato MD Unavailable Unavailable Caleb Amato MD Unavailable Unavailable Caleb Amato MD Unavailable Unavailable Caleb Amato MD Unavailable Unavailable Caleb Amato MD Unavailable Unavailable Caleb Amato MD Unavailable Unavailable Caleb Amato MD Unavailable Unavailable Caleb Amato MD Unavailable Unavailable Caleb Amato MD Unavailable Unavailable Caleb Amato MD Unavailable Unavailable Caleb Amato MD Unavailable Unavailable Caleb Amato MD Unavailable Unavailable Caleb Amato MD Unavailable Unavailable Caleb Amato MD Unavailable Unavailable Caleb Amato MD Unavailable Unavailable Caleb Amato MD Unavailable Unavailable Caleb Amato MD Unavailable Unavailable Caleb Amato MD Unavailable Unavailable Caleb Amato MD Unavailable Unavailable Caleb Amato MD Unavailable Unavailable Caleb Amato MD Unavailable Unavailable Caleb Amato MD Unavailable Unavailable Caleb Amato MD Unavailable Unavailable Caleb Amato MD Unavailable Unavailable Caleb Amato MD Unavailable Unavailable Caleb Amato MD Unavailable Unavailable Caleb Amato MD Unavailable Unavailable Caleb Amato MD Unavailable Unavailable Caleb Amato MD Unavailable Unavailable Caleb Amato MD Unavailable Unavailable LimaCaleb han MD Unavailable Unavailable Caleb Amato MD Unavailable Unavailable Lima, S Jatin MORALES Unavailable Unavailable Lima S Jatin MORALES Unavailable Unavailable Lima S Jatin MORALES Unavailable Unavailable Caleb Amato MD Unavailable Unavailable Caleb Amato MD Unavailable Unavailable Caleb Amato MD Unavailable Unavailable Caleb Amato MD Unavailable Unavailable Lima S Jatin MORALES Unavailable Unavailable Caleb Amato MD Unavailable Unavailable Caleb Amato MD Unavailable Unavailable Caleb Amato MD Unavailable Unavailable Caleb Amato MD Unavailable Unavailable Caleb Amato MD Unavailable Unavailable PICKERAL JR, J OLGA PA-C Unavailable Unavailable PICKERAL JR, J OLGA PA-C Unavailable Unavailable PICKERAL JR, J OLGA PA-C Unavailable Unavailable PICKERAL JR, J OLGA PA-C Unavailable Unavailable PICKERAL JR, J OLGA PA-C Unavailable Unavailable PICKERAL JR, J OLGA PA-C Unavailable Unavailable PICKERAL JR, J OLGA PA-C Unavailable Unavailable PICKERAL JR, J OLGA PA-C Unavailable Unavailable PICKERAL JR, J OLGA PA-C Unavailable Unavailable PICKERAL JR, J OLGA PA-C Unavailable Unavailable PICKERAL JR, J OLGA PA-C Unavailable Unavailable PICKERAL JR, J OLGA PA-C Unavailable Unavailable PICKERAL JR, J OLGA PA-C Unavailable Unavailable PICKERAL JR, J OLGA PA-C Unavailable Unavailable PICKERAL JR, J OLGA PA-C Unavailable Unavailable PICKERAL JR, J OLAG PA-C Unavailable Unavailable PICKERAL JR, J OLGA PA-C Unavailable Unavailable PICKERAL JR, J OLGA PA-C Unavailable Unavailable PICKERAL JR, J OLGA PA-C Unavailable Unavailable PICKERAL JR, J OLGA PA-C Unavailable Unavailable PICKERAL JR, J OLGA PA-C Unavailable Unavailable PICKERAL JR, J OLGA PA-C Unavailable Unavailable PICKERAL JR, J OLGA PA-C Unavailable Unavailable PICKERAL JR, J OLGA PA-C Unavailable Unavailable PICKERAL JR, J OLGA PA-C Unavailable Unavailable PICKERAL JR, J OLGA PA-C Unavailable Unavailable PICKERAL JR, J OLGA PA-C Unavailable Unavailable Re-disclosure Warning The records that you are about to access may contain information from federally-assisted alcohol or drug abuse programs. If such information is present, then the following federally mandated warning applies: This information has been disclosed to you from records protected by federal confidentiality rules (42 CFR part 2). The federal rules prohibit you from making any further disclosure of this information unless further disclosure is expressly permitted by the written consent of the person to whom it pertains or as otherwise permitted by 42 CFR part 2. A general authorization for the release of medical or other information is NOT sufficient for this purpose. The Federal rules restrict any use of the information to criminally investigate or prosecute any alcohol or drug abuse patient.The records that you are about to access may contain highly sensitive health information, the redisclosure of which is protected by Article 27-F of the [facility] Public Health law. If you continue you may have access to information: Regarding HIV / AIDS; Provided by facilities licensed or operated by the [facility] Office of Mental Health; or Provided by the [facility] Office for People With Developmental Disabilities. If such information is present, then the following [facility] mandated warning applies: This information has been disclosed to you from confidential records which are protected by state law. State law prohibits you from making any further disclosure of this information without the specific written consent of the person to whom it pertains, or as otherwise permitted by law. Any unauthorized further disclosure in violation of state law may result in a fine or mcc sentence or both. A general authorization for the release of medical or other information is NOT sufficient authorization for further disc losure. Family History Family Member Name Family Member Gender Family Member Status Date o f Status Description Data Source(s) Unknown Unknown Problem MEDENT ([facility], [facility]) mother Unknown Unknown Problem [facility] ([facility] Encounters Encounter Providers Location Date Indications Data Source(s ) Outpatient Attender: OLGA tatum 12/15/2020 09:00:00 AM EDT MEDENT ([facility]) Outpatient Attender: Jatin Amato MD Main Office 11/04/2020 02:15:00 PM EDT MEDENT ([facility]) Outpatient [address] [facility] [address] 08/24/2020 12:00:00 AM EDT eC ([facility]) Outpatient [facility] 01/15/2020 04:01:01 PM [facility] Outpatient [facility] 01/15/2020 03:26:01 PM [facility] Outpatient [facility] 01/15/2020 01:31:01 PM [facility] Outpatient [facility] 01/14/2020 11:26:03 AM [facility] Outpatient [facility] 01/14/2020 10:52:02 AM [facility] Outpatient [facility] 01/14/2020 10:01:01 AM [facility] Immunizations Vaccine Date Status Description Data Source(s) TB Skin test is not vaccine. 12/09/2020 01:01:00 PM EDT completed MEDENT ([facility], [facility]) Medications Medication Brand Name Start Date Product Form Dose Route Admi nistrative Instructions Pharmacy Instructions Status Indications Reaction Description Data Source(s) 1 mg 12/29/2020 12:00:00 AM EDT tablet 60 TAKE ONE TABLET BY MOUTH TWICE A DAY MAXIMUM DAILY DOSE = 2 TABLETS TAKE ONE TABLET BY MOUTH TWICE A DAY MAX IMUM DAILY DOSE = 2 TABLETS SOLD: 12/30/2020 [facility] 800 mg 12/29/2020 12:00:00 AM EDT tablet 90 TAKE ONE TABLET BY MOUTH THREE TIMES A DAY TAKE ONE TABLET BY MOUTH THREE TIMES A DAY SOLD: 12/30/2020 [facility] 1 mg 11/25/2020 12:00:00 AM EDT tablet 60 TAKE ONE TABLET BY MOUTH TWICE A DAY MAXIMUM DAILY DOSE = 2 TABLETS TAKE ONE TABLET BY MOUTH TWICE A DAY MAX IMUM DAILY DOSE = 2 TABLETS SOLD: 11/26/2020 [facility] 800 mg 11/24/2020 12:00:00 AM EDT tablet 90 TAKE ONE TABLET BY MOUTH THREE TIMES A DAY TAKE ONE TABLET BY MOUTH THREE TIMES A DAY SOLD: 11/26/2020 [facility] 1.479-0.188- 0.225 gram 11/05/2020 12:00:00 AM EDT tablet 24 USE DIRECTED USE DIRECTED SOLD: 11/11/2020 [facility] 11/04/2020 12:00:00 AM EDT active MEDENT ([facility]) 800 mg 10/27/2020 12:00:00 AM EDT tablet 90 TAKE ONE TABLET BY MOUTH THREE TIMES A DAY TAKE ONE TABLET BY MOUTH THREE TIMES A DAY SOLD: 10/27/2020 [facility] 1 mg 10/27/2020 12:00:00 AM EDT tablet 60 TAKE ONE TABLET BY MOUTH TWICE A DAY MAXIMUM DAILY DOSE = 2 TABLETS TAKE ONE TABLET BY MOUTH TWICE A DAY MAX IMUM DAILY DOSE = 2 TABLETS SOLD: 10/27/2020 [facility] 1 mg 09/29/2020 12:00:00 AM EDT tablet 60 TAKE ONE TABLET BY MOUTH TWICE A DAY MAXIMUM DAILY DOSE = 2 TABLETS TAKE ONE TABLET BY MOUTH TWICE A DAY MAX IMUM DAILY DOSE = 2 TABLETS SOLD: 10/02/2020 [facility] 1 mg 09/01/2020 12:00:00 AM EDT tablet 60 TAKE ONE TABLET BY MOUTH TWICE A DAY MAXIMUM DAILY DOSE = 2 TABLETS TAKE ONE TABLET BY MOUTH TWICE A DAY MAX IMUM DAILY DOSE = 2 TABLETS SOLD: 09/01/2020 [facility] 800 mg 08/17/2020 12:00:00 AM EDT tablet 90 TAKE ONE TABLET BY MOUTH THREE TIMES A DAY TAKE ONE TABLET BY MOUTH THREE TIMES A DAY SOLD: 08/21/2020 [facility] 1 mg 07/27/2020 12:00:00 AM EDT tablet 60 TAKE ONE TABLET BY MOUTH TWICE A DAY MAXIMUM DAILY DOSE = TWO TABLETS TAKE ONE TABLET BY MOUTH TWICE A DAY MAXIMUM DAILY DOSE = TWO TABLETS SOLD: 08/03/2020 [facility] 800 mg 07/22/2020 12:00:00 AM EDT tablet 90 TAKE ONE TABLET BY MOUTH THREE TIMES A DAY TAKE ONE TABLET BY MOUTH THREE TIMES A DAY SOLD: 08/03/2020 [facility] 800 mg 06/24/2020 12:00:00 AM EDT tablet 90 TAKE ONE TABLET BY MOUTH THREE TIMES A DAY TAKE ONE TABLET BY MOUTH THREE TIMES A DAY SOLD: 06/29/2020 [facility] 1 mg 06/24/2020 12:00:00 AM EDT tablet 60 TAKE ONE TABLET BY MOUTH TWICE A DAY MAXIMUM DAILY DOSE = 2 TAKE ONE TABLET BY MOUTH TWICE A DAY MAX IMUM DAILY DOSE = 2 SOLD: 06/29/2020 [facility] 1 mg 05/25/2020 12:00:00 AM EDT tablet 60 TAKE ONE TABLET BY MOUTH TWICE A DAY MAXIMUM DAILY DOSE = 2 TABLETS TAKE ONE TABLET BY MOUTH TWICE A DAY MAX IMUM DAILY DOSE = 2 TABLETS SOLD: 05/28/2020 [facility] 800 mg 05/25/2020 12:00:00 AM EDT tablet 90 TAKE ONE TABLET BY MOUTH THREE TIMES A DAY TAKE ONE TABLET BY MOUTH THREE TIMES A DAY SOLD: 05/28/2020 [facility] 800 mg 04/27/2020 12:00:00 AM EST tablet 90 TAKE ONE TABLET BY MOUTH THREE TIMES A DAY TAKE ONE TABLET BY MOUTH THREE TIMES A DAY SOLD: 05/01/2020 [facility] 1 mg 04/27/2020 12:00:00 AM EST tablet 60 TAKE ONE TABLET BY MOUTH TWICE A DAY MAXIMUM DAILY DOSE = 2 TABLETS TAKE ONE TABLET BY MOUTH TWICE A DAY MAX IMUM DAILY DOSE = 2 TABLETS SOLD: 05/01/2020 [facility] 1 mg 03/26/2020 12:00:00 AM EST tablet 60 TAKE ONE TABLET BY MOUTH TWICE A DAY MAXIMUM DAILY DOSE = 2 TAKE ONE TABLET BY MOUTH TWICE A DAY MAX IMUM DAILY DOSE = 2 SOLD: 03/30/2020 [facility] 800 mg 03/26/2020 12:00:00 AM EST tablet 90 TAKE ONE TABLET BY MOUTH THREE TIMES A DAY WITH FOOD TAKE ONE TABLET BY MOUTH THREE TIMES A DAY WITH FOOD S OLD: 03/30/2020 [facility] 1 mg 02/29/2020 12:00:00 AM EST tablet 60 TAKE 1 TABLET BY MOUTH TWICE A DAY MAXIMUM DAILY DOSE = 2 TABLETS TAKE 1 TABLET BY MOUTH TWICE A DAY MAXIM UM DAILY DOSE = 2 TABLETS SOLD: 03/01/2020 [facility] 800 mg 02/26/2020 12:00:00 AM EST tablet 90 TAKE ONE TABLET BY MOUTH THREE TIMES A DAY TAKE ONE TABLET BY MOUTH THREE TIMES A DAY SOLD: 03/01/2020 [facility] 800 mg 01/26/2020 12:00:00 AM EST tablet 90 TAKE ONE TABLET BY MOUTH THREE TIMES A DAY WITH FOOD TAKE ONE TABLET BY MOUTH THREE TIMES A DAY WITH FOOD S OLD: 02/01/2020 [facility] 1 mg 01/26/2020 12:00:00 AM EST tablet 60 TAKE ONE TABLET BY MOUTH EVERY 12 HOURS MAXIMUM DAILY DOSE = 2 TAKE ONE TABLET BY MOUTH EVERY 12 HOURS MAXIMUM DAILY DOSE = 2 SOLD: 02/01/2020 [facility] 1 mg 12/25/2019 12:00:00 AM EDT tablet 60 TAKE ONE TABLET BY MOUTH EVERY 12 HOURS MAXIMUM DAILY DOSE = 2 TAKE ONE TABLET BY MOUTH EVERY 12 HOURS MAXIMUM DAILY DOSE = 2 SOLD: 12/31/2019 [facility] 800 mg 12/25/2019 12:00:00 AM EDT tablet 90 TAKE ONE TABLET BY MOUTH THREE TIMES A DAY WITH FOOD TAKE ONE TABLET BY MOUTH THREE TIMES A DAY WITH FOOD S OLD: 12/31/2019 [facility] 1 mg 11/30/2019 12:00:00 AM EDT tablet 60 TAKE ONE TABLET BY MOUTH EVERY 12 HOURS MAXIMUM DAILY DOSE = 2 TAKE ONE TABLET BY MOUTH EVERY 12 HOURS MAXIMUM DAILY DOSE = 2 SOLD: 12/01/2019 [facility] 800 mg 11/27/2019 12:00:00 AM EDT tablet 90 TAKE ONE TABLET BY MOUTH THREE TIMES A DAY WITH FOOD TAKE ONE TABLET BY MOUTH THREE TIMES A DAY WITH FOOD S OLD: 11/29/2019 [facility] Insurance Providers Payer name Policy type / Coverage type Policy ID Covered green party ID Covered green party's relationship to ambrocio Policy Ambrocio Plan Information D Managed Care [facility] P [id number] S [id number] Medicaid Dental S [id number] S [id number] [facility](MCAID) O [id number] S [id number] Managed Care [facility] Community Plan P UNAVAILABLE S UNAVAILABLE Medicaid S UNAVAILABLE S UNAVAILA BLE Medicaid Dental S [id number] [place] [id number] SP [id number] MEDICAID [id number] SP [id number] MEDICAID [id number] SP [id number] [facility] 86 [id number] EXCELLUS BCBS B [id number] P R [id number] EXCELLUS BCBS B [id number] P [id number] BCBS/Blue Card Commercial [id number] Family Dependent [id number] BCBS/Blue Card Commercial [id number] Family Dependent [id number] [place] PPO 302/307 [id number] SELF PAY UNAVAILABLE SP UNAVAILA BLE [facility] [id number] SP [id number] [place]BS [place] PPO 302/307 [id number] [facility] [id number] SP [id number] Problems, Conditions, and Diagnoses Code Display Name Description Problem Type Effective Dates Data Source(s) 309280405 Screening for malignant neoplasm of colo n Screening for malignant neoplasm of colon Problem 11/04/2020 12:00:00 AM EDT MEDENT ([facility]) R32 Urinary incontinence Urinary incontinence Problem 08/24/2020 12:00:00 AM EDT eCW1 ([facility]) 521.02 DENTAL CARIES EXTENDING INTO DENTINE DEN CHANDRA CARIES EXTENDING INTO DENTINE 01/14/2020 10:50:58 AM EST [facility] Surgeries/Procedures Procedure Description Date Indications Data Source(s) PERIODIC PREVENTIVE MED EST PATIENT 40-64YRS 12:00:00 AM EDT MEDENT ([facility], [facility]) OFFICE OUTPATIENT NEW 30 MINUTES 11/04/2020 12:00:00 A M EDT MEDENT ([facility]) uro PVR (Post Voiding Residual) Bladder Scan 12:00:00 AM EDT eCW1 ([facility]) Results ID Date Data Source Microscopic Only Urine (Auto) 08/24/2020 12:00:00 AM EDT eCW 1 ([facility]) Name Value Range Interpretation Code Description Data Gabbie rce(s) Supporting Document(s) 0 0-3 RBC, URINE AUTO eCW1 ([facility]) 1 0-3 WBC, URINE AUTO eCW1 ([facility]) SMALL NEGATIVE MUCUS, URINE eCW1 ([facility]) 2 0-6 SQUAMOUS EPITHELIAL CELL UR AU eCW1 ([facility]) NEGATIVE NEGATIVE BACTERIA, URINE AUTO eCW1 ([facility]) 0 0-1 HYALINE CAST, URINE AUTO eCW1 ([facility]) ID Date Data Source URINE CULTURE 08/24/2020 12:00:00 AM EDT eCW1 ([facility]) Name Value Range Interpretation Code Description Data Gabbie rce(s) Supporting Document(s) URINE CULTURE eCW1 ([facility]) ID Date Data Source [id number] 04/29/2020 12:00:00 AM EST [facility] Kala Sebastian MD Patient Name: JESSIKA VERNON [facility] Date of : 1965[place] [address] Date of Exam: [facility]#: Fax: [phone] EXAM: CHEST (2 VIEW) X-RAYCLINICAL INFORMATION: COPD. Hypoxemia.Comparison 05/20/2019, CT angio and chest xray.FINDINGS:Two views show the lung yo adequately inflated. The CP angles aresharply defined without effusion. I see no lateral pleural thickening,apical pneumothorax or any significant scarring. No flattening of thediaphragms or abnormal widening of the AP diameter of the chest. Heartsize not enlarged. The aorta and airway intact. Karley symmetric andunremarkable. The bony thorax shows no focal lesion.IMPRESSION:1. There is no evidence of infiltrate, effusion or parenchymal lung mass.I see no pulmonary nodule or effusion. Aorta and airway intact.2. The pulmonary arteries are mildly prominent but symmetric bilaterally,unchanged.Sagar J. Manny, JOVANNA/Estevan you for referring NICK VERNON to our office. Electronically Signed - SAGAR CHRISTINA MD 04/30/20 12:30 Name Value Range Interpretation Code Description Data Gabbie rce(s) Supporting Document(s) ID Date Data Source [id number] 01/14/2020 09:50:44 AM [facility] Vital SignsBlood Pressure: 128/79 Patient History Medical History:AnxietySurgical History:Bladder surgeryAppendixFamily History:Social/Personal History: Smoking Status: never smokerCurrent Problems: DENTAL CARIES EXTENDING INTO DENTINE (ICD-521.02) (QIC49-K92.62)Problem list reviewed during this update.Current Medications: * XANAX Medication list reviewed during this update.Allergy list reviewed during this update.No known allergies.Past Medical History:(reviewed - no changes required) Anxiety Dental Chart: Procedures:Type - CDT Code - Description B - (D1110) Prophylaxis, adult (Performed by Mary Zurita RDH) B - (D0150) Comprehensive oral evaluation - new or established patient (Performed by Kaylie Barrow DDS) B - (D0274) Bitewings, 4 radiographic images (Performed by Mary Zurita RDH) B - (D0220) Intraoral, periapical, first radiographic image on Tooth # 7 (Performed by Mary Zurita RDH) B - (D0230) Intraoral, periapical, each additional radiographic image on Tooth # 8 (Performed by Mary Zurita RDH) B - (D0230) Intraoral, periapical, each additional radiographic image on Tooth # 9 (Performed by Mary Zurita RDH) Treatments:Type - CDT Code - Description T - (D2740) [place], porcelain/ceramic substrate on Tooth # 7 (Performed by Mary Zurita RDH) T - (D2740) [place], porcelain/ceramic substrate on Tooth # 8 (Performed by Mary Zurita RDH) Existing:Type - CDT Code - Description[E] [place] - Porcelain/Ceramic Substrate On #9[E] Root Canal On #2 Region PMD, #3 Region MPD[E] Resin-Based Composite - Direct On #1 Surface O, #13 Surface OD, #14 Surface MDO, #15 Surface M, #31 Surface MO[E] Missing - [place] and Root On #16 Surface O Region XR, #17 Surface O Region XR, #18 Surface O Region XR, #19 Surface O Region XR, #29 Surface O Region XR, #30 Surface O Region XR, #32 Surface O Region XR, #4 Surface O Region XR, #5 Surface O Region XR[E] [place] - Porcelain Fused To High Valenzuela Metal On #2, #3 Chart Notes:lavonne (Jan 14 2020 10:45AM): Additional PPE requirements due to COVID-19 in the dental setting, N95, surgical mask, hair covering, gown. [facility] with patient. Pt. has #7 chipped. Tooth #8 has decay and due to pts. bite Dr. can't do a filling on #7 and #8.Pt. should have had ortho in the past. Sent a referral for #7 and #8 for a crown. Sent a referral for a partial denture and a preauthorization. [facility]. Tempature taken in the [facility] prophy- handscaled and used cavitron in all quads-pt. tolerated well, sami- mint prophy paste, floss, 4 BW's, 3 PA'sOH-Patient brushes twice/day and flossing regularlyLT gen marginal biofilm and marginal/introproximal calculus on LA. Tissues are red, inflammed, and bleeding in sextant 5OHI- Advise to brush 2x a day and floss everyday. Recommended Listerine ZeroPatient is cooperative. NV- 6 month recallWatson Mary SHAHID by lavonne (01/14/2020 10:45 AM): ; rosemary (Jan 14 2020 11:25AM): [facility](-). CC: none. Reviewed Xrays. Exam: caries detected. OCS: WNL, IO/ EO completed, No significant hard findings upon clinical exam.Additional PPE requirements due to COVID-19 in the dental setting, N95, surgical mask, hair covering, gown and shieldPt was cooperative. OHI givenReferral: # 7 and # 8 for crowns. NV:recallWatson ZEHRA, Mary by rosemary (01/14/2020 11:25 AM): Tooth Notes and Watches: Assessment & Plan Problems:Added: DENTAL CARIES EXTENDING INTO DENTINE (ICD-521.02) (ICD10- K02.62)Medications:XANAXMedication Changes:Added: * XANAXAllergies:No Known Allergies (updated 01/14/2020) Orders:Multi-Service Referral [[id number]] Name Value Range Interpretation Code Description Data Gabbie rce(s) Supporting Document(s) Procedure Social History Code Duration Value Status Description Data Source(s ) Smoking 08/24/2020 12:00:00 AM EDT Never Smoker completed Never S naomi eCW1 ([facility]) Vital Signs ID Date Data Source UNK Name Value Range Interpretation Code Description Data Source(s) Oxygen saturation in Arterial blood by Pulse oximetry 97 % 97 % [facility], [facility]) Body temperature 97.9 [degF] 97.9 [degF] MEDENT ([facility], [facility]) Body weight 140.00 [lb_av] 140.00 [lb_av] MEDEN T ([facility], [facility]) Body height 64 [in_i] 64 [in_i] MEDENT ([facility], [facility]) 5'4" Body mass index (BMI) [Ratio] 24.0 kg/m2 24.0 k g/m2 MEDENT ([facility], [facility]) Systolic blood pressure 138 mm[Hg] 138 mm[Hg] M EDENT ([facility], [facility]) Diastolic blood pressure 88 mm[Hg] 88 mm[Hg] MEDENT ([facility], [facility]) Heart rate 67 /min 67 /min MEDENT ([facility] Respiratory rate 16 /min 16 /min MEDENT ( [facility] Body height 64 [in_i] 64 [in_i] [facility] 5'4" Body weight 146.00 [lb_av] 146.00 [lb_av] MEDEN T ([facility]) Systolic blood pressure 128 mm[Hg] 128 mm[Hg] M EDENT ([facility]) Diastolic blood pressure 80 mm[Hg] 80 mm[Hg] MEDENT ([facility]) Heart rate 70 /min 70 /min [facility] ([facility]) Body mass index (BMI) [Ratio] 25.1 kg/m2 25.1 k g/m2 MEDENT ([facility]) Body weight 66.226 kg 66.226 kg MEDENT ([facility]) Body temperature 96.8 [degF] 96.8 [degF] MEDENT ([facility]) Body weight 149.4 [lb_av] 149.4 [lb_av] eCW1 ([facility]) Body height [in_i] eCW1 ([facility]) Body mass index (BMI) [Ratio] 26.46 kg/m2 26.46 kg/m2 eCW1 ([facility]) Heart rate 76 /min 76 /min eCW1 ([facility]) Respiratory rate 18 /min 18 /min eCW1 ([facility]) Body temperature 96.9 [degF] 96.9 [degF] eCW1 ( [facility]) Systolic blood pressure 126 mm[Hg] 126 mm[Hg] e CW1 ([facility]) Diastolic blood pressure 72 mm[Hg] 72 mm[Hg] eCW1 ([facility])
--- OUTSIDE RECORDS SUMMARY | 2021-01-03 08:38 | CCD | Continuity of Care Document ---
Author Author Kiara DE LEÓN Organization Unknown Address [address] [place] [id number] Phone [phone] Care Team Providers Care Bucket Pusher Name Role Phone Kala Sebastian MD [facility] [phone] Problems Description No Information Available Social History [...] Code Status Date Vaccine Reaction Lot # [id number] Given 12/09/2020 PPD- TB Intradermal Test 0mm ,negative read by SYDNEY Millard 12-11-20 [id number] Given 01/07/2019 PPD- TB Intradermal Test 0mm ,negative read on 01-09-19 by SYDENY Méndez [id number] Given 10/10/2016 PPD- TB Intradermal Test No reaction - read as negative, 0 mm of induration, by SYDNEY Clark on 10/12/16 [id number] Vital Signs Date Vital Result Comment 12/15/2020 [...] Available Procedures Date Code Description Status 12/15/2020 13518 Preventive Visit Est 40-64 Yrs C ompleted [...]
[2021-01-03] MEDS ORDERED: NS 1,000 ML IV ONE ×2 (08:55→09:10)
--- NOTE | 2021-01-03 10:24 | ROOR ---
Patient Name: Kiara Bobby Procedure Date: 01/03/2021 10:01 AM Date of : 1965 Age: 55 Room: [facility] Gender: Female Note Status: Finalized Procedure: Total Colonoscopy to Cecum Indications: Colon cancer screening in patient at increased risk: Colorectal cancer in mother Providers: Jatin Amato MD Referring MD: KARRIE BOWLING MD Requesting Provider: Medicines: Monitored Anesthesia Care Complications: No immediate complications. Procedure: Pre-Anesthesia Assessment: - The heart rate, respiratory rate, oxygen saturations, blood pressure, adequacy of pulmonary ventilation, and response to care were monitored throughout the procedure. The Colonoscope was introduced through the anus and advanced to the cecum, identified by appendiceal orifice and ileocecal valve. The colonoscopy was performed without difficulty. The patient tolerated the procedure well. The quality of the bowel preparation was excellent. Findings: The perianal and digital rectal examinations were normal. Non-bleeding internal hemorrhoids were found during retroflexion. The hemorrhoids were small and Grade I (internal hemorrhoids that do not prolapse). No other significant abnormalities were identified in a careful examination of the remainder of the colon. The exam was otherwise without abnormality on direct and retroflexion views. Impression: - Non-bleeding internal hemorrhoids. - The examination was otherwise normal on direct and retroflexion views. - No specimens collected. - The exam was otherwise normal to the cecum. Recommendation: - Patient has a contact number available for emergencies. The signs and symptoms of potential delayed complications were discussed with the patient. Return to normal activities tomorrow. Written discharge instructions were provided to the patient. - High fiber diet. - Discharge patient to home. - Continue present medications. - Repeat colonoscopy in 5 years for screening purposes. - Return to referring physician. - The findings and recommendations were discussed with the patient. Procedure Code(s): --- Professional --- G0105, Colorectal cancer screening; colonoscopy on individual at high risk Diagnosis Code(s): --- Professional --- Z80.0, Family history of malignant neoplasm of digestive organs K64.0, First degree hemorrhoids CPT copyright 2019 [employer]. All rights reserved. 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 Jatin Amato MD Jatin Amato MD 01/03/2021 10:24:22 AM Electronically signed by Jatin Amato MD Number of Addenda: 0 Note Initiated On: 01/03/2021 10:01 AM Estimated Blood Loss: Estimated blood loss: none.
[2021-01-03 10:43] VITALS: BP 117/71
== END 2021-01-03 10:50 | disposition home or self-care (01) ==
LOC: M OPP 08:33
PROVIDERS: ATTEND Internal Medicine Gastroenterology
DX: Z12.11 Encounter for screening for malignant neoplasm of colon (principal); Z80.0 Family history of malignant neoplasm of digestive organs; K64.0 First degree hemorrhoids; Z79.899 Other long term (current) drug therapy

== ENCOUNTER → 2021-02-25 | Outpatient (CLI) | payer OTHER ==
[~2021-02-25] MED LIST changes: -CEFD1CAP8 PO; +CEFD300C41 PO; -LIDOCAINE 2% 100MG/5ML SDV (FOR ANES.) As Ordered ONE; -propofoL 200 MG/20 ML VIAL As Ordered ONE
== END ==
LOC: M WHC 10:05
PROVIDERS: ATTEND Family Medicine
DX: Z12.31 Encounter for screening mammogram for malignant neoplasm of breast (principal)

== ENCOUNTER → 2021-03-10 | Outpatient (CLI) | payer OTHER ==
[~2021-03-10] MED LIST changes: +CEFD1CAP8 PO; -CEFD300C41 PO
[2021-03-10 10:26] LABS: HEMATOCRIT 45.7 % (36.0-47.0); HEMOGLOBIN 14.9 g/dl (12.0-15.5); MEAN CORPUSCULAR HEMOGLOBIN 29.3 pg (27.0-33.0); MEAN CORPUSCULAR HGB CONC 32.6 g/dl (32.0-36.5); MEAN CORPUSCULAR VOLUME 89.8 fl (80.0-96.0); PLATELET COUNT, AUTOMATED 247 10^3/uL (150-450); RED BLOOD COUNT 5.09 10^6/uL (4.00-5.40); WHITE BLOOD COUNT 6.2 10^3/uL (4.0-10.0)
[2021-03-10 10:45] LABS: HEMOGLOBIN A1c 5.4 %
[2021-03-10 11:01] LABS: ALBUMIN 4.1 GM/DL (3.2-5.2); ALT/SGPT 32 U/L (12-78); BILIRUBIN,TOTAL 0.6 MG/DL (0.2-1.0); BLOOD UREA NITROGEN 13 MG/DL (7-18); CALCIUM LEVEL 10.1 MG/DL (8.5-10.1); CARBON DIOXIDE LEVEL 30 MEQ/L (21-32); CHLORIDE LEVEL 105 MEQ/L (98-107); CHOLESTEROL LEVEL 244 MG/DL (<200); CHOLESTEROL RISK RATIO 3.436 (<5); CREATININE FOR GFR 0.78 MG/DL (0.55-1.30); GLOMERULAR FILTRATION RATE > 60.0 (>51); GLUCOSE, FASTING 95 MG/DL (70-100); HDL CHOLESTEROL 71 MG/DL (>40); LDL CHOLESTEROL 144 MG/DL (<100); NON-HDL-C 173 MG/DL; POTASSIUM SERUM 4.7 MEQ/L (3.5-5.1); SODIUM LEVEL 141 MEQ/L (136-145); TOTAL PROTEIN 7.8 GM/DL (6.4-8.2); TRIGLYCERIDES LEVEL 145 MG/DL (<150)
[2021-03-10 15:03] LABS: TOTAL 25(OH) VITAMIN D 41.3 NG/ML (30.0-100.0)
== END ==
LOC: M LAB 09:40
PROVIDERS: ATTEND Family Medicine
DX: D64.9 Anemia, unspecified (principal)

== ENCOUNTER → 2021-04-06 | Outpatient (CLI) | payer OTHER ==
[~2021-04-06] MED LIST changes: -CEFD1CAP8 PO; +CEFD300C41 PO
== END ==
LOC: M WUC 10:15
PROVIDERS: ATTEND Physician Assistant
DX: M85.80 Other specified disorders of bone density and structure, unspecified site (principal); M51.9 Unspecified thoracic, thoracolumbar and lumbosacral intervertebral disc disorder; M54.50 Low back pain, unspecified; J06.9 Acute upper respiratory infection, unspecified; Z20.828 Contact with and (suspected) exposure to other viral communicable diseases

== ENCOUNTER → 2021-09-01 | Outpatient (CLI) | payer OTHER ==
[2021-09-01 14:58] LABS: HEMATOCRIT 42.7 % (36.0-47.0); HEMOGLOBIN 14.5 g/dl (12.0-15.5); MEAN CORPUSCULAR HEMOGLOBIN 30.7 pg (27.0-33.0); MEAN CORPUSCULAR VOLUME 90.5 fl (80.0-96.0); PLATELET COUNT, AUTOMATED 243 10^3/uL (150-450); RED BLOOD COUNT 4.72 10^6/uL (4.00-5.40); WHITE BLOOD COUNT 6.6 10^3/uL (4.0-10.0)
[2021-09-01 15:35] LABS: ALBUMIN 4.1 GM/DL (3.2-5.2); ALT/SGPT 26 U/L (12-78); BILIRUBIN,TOTAL 0.5 MG/DL (0.2-1.0); BLOOD UREA NITROGEN 10 MG/DL (7-18); CALCIUM LEVEL 9.6 MG/DL (8.5-10.1); CARBON DIOXIDE LEVEL 31 MEQ/L (21-32); CHLORIDE LEVEL 105 MEQ/L (98-107); CHOLESTEROL LEVEL 264 MG/DL (<200); CREATININE FOR GFR 0.83 MG/DL (0.55-1.30); GLOMERULAR FILTRATION RATE > 60.0 (>51); GLUCOSE, FASTING 80 MG/DL (70-100); HDL CHOLESTEROL 88 MG/DL (>40); IRON (FE) 102 UG/DL (50-170); LDL CHOLESTEROL 141 MG/DL (<100); NON-HDL-C 176 MG/DL; PERCENT SATURATION 30.1 % (13.2-45.0); SODIUM LEVEL 141 MEQ/L (136-145); TOTAL IRON BINDING CAPACITY 339 UG/DL (250-450); TRIGLYCERIDES LEVEL 173 MG/DL (<150)
[2021-09-01 15:57] LABS: HEMOGLOBIN A1c 5.6 %
[2021-09-01 23:19] LABS: TOTAL 25(OH) VITAMIN D 44.9 NG/ML (30.0-100.0); VITAMIN B12 LEVEL 478 PG/ML (247-911)
== END ==
LOC: M LAB 14:16
PROVIDERS: ATTEND Family Medicine
DX: D64.9 Anemia, unspecified (principal); R53.83 Other fatigue; E03.9 Hypothyroidism, unspecified

== ENCOUNTER 2022-01-12 09:48 | Emergency (ER) | payer OTHER ==
[~2022-01-12] VITALS: Ht 162.6 cm; Wt 58.2 kg
[2022-01-12] MEDS ORDERED: TIZA10TA (09:57)
[2022-01-12] MEDS ORDERED: SIMV20TA22 (09:57)
[2022-01-12] MEDS ORDERED: LEVO50TA5 (09:57)
[2022-01-12] MEDS ORDERED: ONDANSETRON 4MG 2ML VIAL IV ONE (12:45)
[2022-01-12] MEDS ORDERED: KETOROLAC 30 MG/ML 1ML VIAL IV ONE (12:45)
[2022-01-12] MEDS ORDERED: NS 1,000 ML IV ONE (12:45)
[2022-01-12 13:20] LABS: BASO % 0.5 % (0.0-1.0); EOS # 0.1 10^3/uL (0.0-0.5); EOS % 0.6 % (0.0-3.0); HEMATOCRIT 42.9 % (36.0-47.0); HEMOGLOBIN 13.8 g/dl (12.0-15.5); LYMPH # 0.5 10^3/uL (1.5-5.0); LYMPH % 5.8 % (24.0-44.0); MEAN CORPUSCULAR HEMOGLOBIN 29.7 pg (27.0-33.0); MEAN CORPUSCULAR HGB CONC 32.2 g/dl (32.0-36.5); MEAN CORPUSCULAR VOLUME 92.5 fl (80.0-96.0); NEUTROPHILS # 6.4 10^3/uL (1.5-8.5); NEUTROPHILS % 79.8 % (36.0-66.0); PLATELET COUNT, AUTOMATED 213 10^3/uL (150-450); RED BLOOD COUNT 4.64 10^6/uL (4.00-5.40)
[2022-01-12 13:55] LABS: BLOOD UREA NITROGEN 9 MG/DL (7-18); CALCIUM LEVEL 9.6 MG/DL (8.5-10.1); CARBON DIOXIDE LEVEL 29 MEQ/L (21-32); CHLORIDE LEVEL 101 MEQ/L (98-107); CREATININE FOR GFR 0.91 MG/DL (0.55-1.30); GLOMERULAR FILTRATION RATE > 60.0 (>51); GLUCOSE, FASTING 96 MG/DL (70-100); POTASSIUM SERUM 3.7 MEQ/L (3.5-5.1); SODIUM LEVEL 135 MEQ/L (136-145)
[2022-01-12] MEDS ORDERED: OSEL75CA PO (14:12)
[2022-01-12] MEDS ORDERED: BENZ200C70 PO (14:12)
[2022-01-12] MEDS ORDERED: ONDA4TAB6 PO (14:12)
[2022-01-12 14:22] VITALS: BP 133/60
== END 2022-01-12 14:27 | disposition home or self-care (01) ==
LOC: M ED 09:48
DX: J84.114 Acute interstitial pneumonitis (principal); J09.X2 Influenza due to identified novel influenza A virus with other respiratory manifestations; E03.9 Hypothyroidism, unspecified; E78.5 Hyperlipidemia, unspecified; F41.9 Anxiety disorder, unspecified; Z79.899 Other long term (current) drug therapy; Z79.890 Hormone replacement therapy
CPT/HCPCS: 71045; 80048; 85025; 87486; 87581; 87633; 87798; 96361; 96374; 96375; 99284; J1885; J2405

== ENCOUNTER → 2022-02-15 | Outpatient (CLI) | payer OTHER ==
[~2022-02-15] MED LIST changes: +BENZ200C70 PO; +LEVO50TA5; +OSEL75CA PO; +SIMV20TA22; +TIZA10TA
== END ==
LOC: M RAD 10:00
PROVIDERS: ATTEND Family Medicine
DX: J44.9 Chronic obstructive pulmonary disease, unspecified (principal)

== ENCOUNTER → 2022-03-07 | Outpatient (CLI) | payer OTHER | LOC: M WUC 14:37 | PROVIDERS: ATTEND Family Medicine | DX: M17.11 Unilateral primary osteoarthritis, right knee (principal) ==

== ENCOUNTER → 2022-03-17 | Outpatient (CLI) | payer OTHER | LOC: M WHC 07:46 | PROVIDERS: ATTEND Family Medicine | DX: Z12.31 Encounter for screening mammogram for malignant neoplasm of breast (principal) ==

== ENCOUNTER → 2022-06-02 | Outpatient (CLI) | payer OTHER ==
[2022-06-02 07:11] LABS: HEMATOCRIT 42.7 % (36.0-47.0); HEMOGLOBIN 13.8 g/dl (12.0-15.5); MEAN CORPUSCULAR HEMOGLOBIN 29.6 pg (27.0-33.0); MEAN CORPUSCULAR HGB CONC 32.3 g/dl (32.0-36.5); MEAN CORPUSCULAR VOLUME 91.4 fl (80.0-96.0); PLATELET COUNT, AUTOMATED 295 10^3/uL (150-450); RED BLOOD COUNT 4.67 10^6/uL (4.00-5.40); WHITE BLOOD COUNT 7.6 10^3/uL (4.0-10.0)
[2022-06-02 07:31] LABS: HEMOGLOBIN A1c 5.5 % (4.0-6.0)
[2022-06-02 07:44] LABS: ALKALINE PHOSPHATASE 90 U/L (46-116); ALT/SGPT 27 U/L (7.0-40); AST/SGOT 28 U/L (<34); BILIRUBIN,TOTAL 0.5 MG/DL (0.3-1.2); BLOOD UREA NITROGEN 13 MG/DL (9-23); CALCIUM LEVEL 9.4 MG/DL (8.5-10.1); CARBON DIOXIDE LEVEL 31 MMOL/L (20-31); CHLORIDE LEVEL 104 MMOL/L (98-107); CHOLESTEROL LEVEL 173 MG/DL (<200); CHOLESTEROL RISK RATIO 2.43 (<5); CREATININE FOR GFR 0.84 MG/DL (0.55-1.30); GLOMERULAR FILTRATION RATE > 60.0 (>51); GLUCOSE, FASTING 80 MG/DL (60-100); HDL CHOLESTEROL 71.1 MG/DL (>40); LDL CHOLESTEROL 67.5 MG/DL (<100); NON-HDL-C 101.9 MG/DL; POTASSIUM SERUM 4.4 MMOL/L (3.5-5.1); SODIUM LEVEL 141 MMOL/L (136-145); THYROID STIMULATING HORMONE 2.278 uIU/ML (0.55-4.78); THYROXINE (T4) 9.2 UG/DL (4.5-10.9); TOTAL 25(OH) VITAMIN D 31.1 NG/ML (20.0-100.0); TOTAL PROTEIN 7.3 G/DL (5.7-8.2); TOTAL T3 82.5 NG/DL (60.0-181.0); TRIGLYCERIDES LEVEL 172 MG/DL (<150)
== END ==
LOC: M LAB 06:11
PROVIDERS: ATTEND Family Medicine
DX: D64.9 Anemia, unspecified (principal)

== ENCOUNTER → 2023-04-05 | Outpatient (CLI) | payer BC, OTHER ==
[~2023-04-05] MED LIST changes: +CEFD1CAP9 PO; -CEFD300C41 PO; -OXYB5TAB10 PO; +OXYB5TAB11 PO
== END ==
LOC: M WHC 15:46
PROVIDERS: ATTEND Family Medicine
DX: Z12.31 Encounter for screening mammogram for malignant neoplasm of breast (principal)

== ENCOUNTER → 2024-04-03 | Outpatient (CLI) | payer MEDICAID, OTHER ==
[~2024-04-03] MED LIST changes: +ONDA-282 PO; -ONDA4TAB6 PO; -OXYB5TAB11 PO; +OXYB5TAB14 PO
== END ==
LOC: M RAD 14:56
PROVIDERS: ATTEND Family Medicine
DX: S82.891A Other fracture of right lower leg, initial encounter for closed fracture (principal); W18.30XA Fall on same level, unspecified, initial encounter; Y92.009 Unspecified place in unspecified non-institutional (private) residence as the place of occurrence of the external cause

== ENCOUNTER → 2024-04-10 | Outpatient (CLI) | payer OTHER | LOC: M SOG 15:31 | PROVIDERS: ATTEND Physician Assistant | DX: S82.61XA Displaced fracture of lateral malleolus of right fibula, initial encounter for closed fracture (principal); M25.571 Pain in right ankle and joints of right foot; Y93.9 Activity, unspecified; Y92.9 Unspecified place or not applicable ==

== ENCOUNTER → 2024-05-13 | Outpatient (CLI) | payer OTHER | LOC: M SOG 07:57 | PROVIDERS: ATTEND Physician Assistant | DX: M25.571 Pain in right ankle and joints of right foot (principal) ==

== ENCOUNTER → 2024-06-09 | Outpatient (CLI) | payer OTHER ==
[2024-06-09 08:39] LABS: HEMATOCRIT 38.9 % (36.0-47.0); HEMOGLOBIN 12.8 g/dl (12.0-15.5); MEAN CORPUSCULAR HGB CONC 32.9 g/dl (32.0-36.5); MEAN CORPUSCULAR VOLUME 91.1 fl (80.0-96.0); PLATELET COUNT, AUTOMATED 233 10^3/uL (150-450); RED BLOOD COUNT 4.27 10^6/uL (4.00-5.40); WHITE BLOOD COUNT 6.4 10^3/uL (4.0-10.0)
[2024-06-09 09:09] LABS: ALBUMIN 3.4 G/DL (3.2-5.2); ALKALINE PHOSPHATASE 72 U/L (35-104); ALT/SGPT 20 U/L (7.0-40); AST/SGOT 16 U/L (<34); BILIRUBIN,TOTAL 0.3 MG/DL (0.3-1.2); BLOOD UREA NITROGEN 12 MG/DL (9-23); CALCIUM LEVEL 9.2 MG/DL (8.5-10.1); CARBON DIOXIDE LEVEL 34 MMOL/L (20-31); CHLORIDE LEVEL 104 MMOL/L (98-107); CHOLESTEROL LEVEL 172 MG/DL (<200); CHOLESTEROL RISK RATIO 2.98 (<5); CREATININE FOR GFR 0.75 MG/DL (0.55-1.30); GLOMERULAR FILTRATION RATE > 60.0 (>51); GLUCOSE, FASTING 89 MG/DL (60-100); HDL CHOLESTEROL 57.7 MG/DL (>40); LDL CHOLESTEROL 82.9 MG/DL (<100); NON-HDL-C 114.3 MG/DL; SODIUM LEVEL 142 MMOL/L (136-145); TOTAL PROTEIN 6.6 G/DL (5.7-8.2); TRIGLYCERIDES LEVEL 157 MG/DL (<150)
[2024-06-09 09:11] LABS: TOTAL 25(OH) VITAMIN D 45.6 NG/ML (20.0-100.0)
[2024-06-09 09:12] LABS: THYROID STIMULATING HORMONE 2.723 uIU/ML (0.55-4.78)
[2024-06-09 10:33] LABS: HEMOGLOBIN A1c 5.3 % (4.0-6.0)
== END ==
LOC: M RAD 07:31
PROVIDERS: ATTEND Family Medicine
DX: I10 Essential (primary) hypertension (principal); R53.83 Other fatigue; E03.9 Hypothyroidism, unspecified

== ENCOUNTER → 2024-06-13 | Outpatient (CLI) | payer OTHER | LOC: M SOG 07:53 | PROVIDERS: ATTEND Physician Assistant | DX: M19.071 Primary osteoarthritis, right ankle and foot (principal); Z87.81 Personal history of (healed) traumatic fracture ==

== ENCOUNTER → 2024-07-18 | Outpatient (CLI) | payer OTHER | LOC: M SOG 07:14 | PROVIDERS: ATTEND Physician Assistant | DX: M25.571 Pain in right ankle and joints of right foot (principal) ==

== ENCOUNTER → 2024-09-16 | Outpatient (CLI) | payer OTHER | LOC: M SOG 09:35 | PROVIDERS: ATTEND Physician Assistant | DX: M25.571 Pain in right ankle and joints of right foot (principal) ==

== ENCOUNTER → 2024-10-23 | Outpatient (CLI) | payer OTHER | LOC: M PLAIMG 07:56 | PROVIDERS: ATTEND Physician Assistant | DX: S82.61XD Displaced fracture of lateral malleolus of right fibula, subsequent encounter for closed fracture with routine healing (principal); Y92.9 Unspecified place or not applicable; Y93.9 Activity, unspecified ==